=== PATIENT | female | born 1980 | race Caucasian/White ===

== ENCOUNTER 2023-11-14 14:07 | Emergency (ER) | payer BC ==
[~2023-11-14] VITALS: Ht 160 cm; Wt 83.9 kg
== END 2023-11-14 17:09 | disposition home or self-care (01) ==
LOC: ED 14:07
DX: S93.401A Sprain of unspecified ligament of right ankle, initial encounter (principal); Z88.8 Allergy status to other drugs, medicaments and biological substances; X50.1XXA Overexertion from prolonged static or awkward postures, initial encounter; Y93.89 Activity, other specified; Y92.89 Other specified places as the place of occurrence of the external cause; Y99.8 Other external cause status